=== PATIENT | female | born 1980 | race Caucasian/White ===

== ENCOUNTER 2016-08-05 08:00 | Inpatient (IN) | payer OTHER ==
--- NOTE | ~2016-08-05 | PN ---
Unit #: [id number] #: [id number] Patient: RORO LAINEZ [id number] [facility] [address] [place] [address] [id number] MR#: [id number] NAME: RORO LAINEZ ROOM: P208 Age: 36 Sex: F Admission Date: 08/05/2016 : 1980 Attending Physician: Jorge Alberto Mai M.D. Admitting Physician: Jorge Alberto Mai M.D. Primary Care Physician: Primary Care Physician Lizbeth SEXTON NOTES DATE 08/06/2016 DISCUSSION The patient is complaining of severe symptoms of opiate withdrawal. I will add p.r.n. Vistaril and trazodone today. Dictated by... Jorge Alberto Mai M.D. CB/kristen TD: 08/06/2016 15:03 JOB #: [id number] KEE SEXTON NOTES Page 1 of 1 X Jorge Alberto Mai MD X PROGRESS NOTE
--- NOTE | ~2016-08-05 | HP ---
Unit #: [id number] #: [id number] Patient: RORO LAINEZ [id number] [facility] [address] [place] [address] [id number] MR#: [id number] NAME: RORO LAINEZ ROOM: P208 Age: 36 Sex: F Admission Date: 08/05/2016 : 1980 Attending Physician: Jorge Alberto Mai M.D. Admitting Physician: Jorge Alberto Mai M.D. Primary Care Physician: Primary Care Physician No HISTORY AND PHYSICAL HISTORY OF PRESENT ILLNESS Roro is a 36 year old, admitted to [address] [place] [address], because of her continued drug use. She shoots heroin. PAST MEDICAL HISTORY Long history of opioid abuse to include IV heroin. PAST SURGICAL HISTORY Nothing reported. ALLERGIES No known drug allergies. SOCIAL HISTORY He smokes one pack per day, denies alcohol, admits to a long history of illicit substance abuse, most recently IV heroin. FAMILY HISTORY Medically noncontributory. REVIEW OF SYSTEMS CONSTITUTIONAL: No fever or chills. HEENT: Denies any sore throat, ear pain or runny nose. CARDIOVASCULAR: Denies chest pain, irregular heart rhythm or palpitations. CHEST: Denies shortness of breath or cough. No hemoptysis. GASTROINTESTINAL: Denies nausea, vomiting, diarrhea or chronic constipation. ENDOCRINE: Denies history of increased thirst or urination. No recent significant weight loss or gain. GENITOURINARY: Denies dysuria, frequency, or hematuria. SKIN: Denies any rashes. HEMATOLOGIC: Denies history of increased bleeding or bruising. MUSCULOSKELETAL: Denies any hot, swollen joints. No generalized muscle pain. NEUROLOGIC: Denies problems with vision or speech. No frequent, severe headaches. No numbness, tingling or weakness in any extremities. Denies loss of bladder or bowel control. CURRENT MEDICATIONS Detox protocol. PHYSICAL EXAMINATION GENERAL: Alert, well-nourished, no apparent distress. Unit #: [id number] #: [id number] Patient: RORO LAINEZ VITAL SIGNS: Blood pressure 116/60, heart rate 92, respirations 16, and temperature 98.6. WEIGHT: 175 pounds. HEIGHT: 5 feet 7 inches. SKIN: Warm and dry without rash or lesion. HEENT: Normocephalic. TMs not viewed. Oral and nasal passages clear. Conjunctivae clear. PERRLA. EOMs intact. NECK: Supple without lymphadenopathy or thyromegaly. HEART: Regular rate and rhythm without murmur. LUNGS: Clear. ABDOMEN: Soft, nontender. : Not done. EXTREMITIES: No evidence of cyanosis, clubbing or edema. Moves all without focal deficit. NEUROLOGICAL: Grossly within normal limits. Cranial Nerves: II: Visual greenwood are intact. III, IV AND : Extraocular movements are intact. Pupils are equal, round and reactive to light. V: Facial sensation is grossly normal. VII: Facial movements and expression are normal. VIII: Auditory acuity grossly intact. IX, X: Uvula is midline. Phonation is normal. XI: Patient shrugs shoulders and turns head normally. XII: Tongue protrudes in the midline. Sensory and Motor Function: Sensory and motor sensation is grossly normal. Motor: moves all extremities well. Coordination: Gait is normal. Deep Tendon Reflexes: Intact. IMPRESSION Psychiatric admission. RECOMMENDATIONS Psychiatric, per psychiatrist. MEDICAL I see no contraindications to participating in facility's activities. MEDICAL PROGNOSIS Good. MEDICAL CONDITION Stable. Dictated by... Roro James P.A.-C. for Ida Ortega/mini TD: 08/06/2016 07:03 JOB #: [id number] Unit #: [id number] #: [id number] Patient: RORO LAINEZ HISTORY AND PHYSICAL Page 1 of 1 X Roro James J PA X HISTORY AND PHYSICAL
--- NOTE | ~2016-08-05 | PA ---
Unit #: [id number] #: [id number] Patient: RORO LAINEZ [id number] [facility] [address] [place] [address] [id number] MR#: [id number] NAME: RORO LAINEZ ROOM: P208 Age: 36 Sex: F Admission Date: 08/05/2016 : 1980 Date of Assessment: 08/05/2016 Attending Physician: Jorge Alberto Mai M.D. Admitting Physician: Jorge Alberto Mai M.D. Primary Care Physician: Lizbeth Primary Care Physician PSYCHIATRIC ASSESSMENT IDENTIFYING INFORMATION Patient is a 36-year-old, , white female who is admitted to the [address] [place] [address] with a recent relapse of heroin use. CHIEF COMPLAINT I relapsed. INFORMANT Patient. Patient's reliability is good. HISTORY OF PRESENT ILLNESS The patient is a 36-year-old, , white female with a multiyear history of heroin abuse. The patient reported that she had maintained sobriety until about four months ago when she relapsed. The patient reports she is "tired of living like this" and had voiced some suicidal ideation at the time of admission related to hopelessness. The patient denies uses of psychoactive substances apart from intravenous heroin. She is presently unemployed and living with friends. She states that she obtains heroin by "getting money from people." PAST PSYCHIATRIC HISTORY The patient reports she was treated at [facility] in 2014 and maintained sobriety for several months. PAST MEDICAL HISTORY Noncontributory. MEDICATIONS None. ALLERGIES None. FAMILY HISTORY Noncontributory. SOCIAL HISTORY The patient has an associates degree in accounting, but is not presently employed. She reports substance use, as noted previously, and is a smoker. She is noted to have two children, neither of whom she has custody. MENTAL STATUS EXAMINATION Unit #: [id number] #: [id number] Patient: RORO LAINEZ At this time reveals the patient to be a well developed, well nourished, white female appearing her stated age. She is in moderate physical distress related to opioid withdrawal. During interview, she is awake and oriented in all spheres. Her mood is dysphoric. His affect blunted. Speech is generally relevant and coherent. There are no gross deficits in memory or cognition noted. Intelligence is judged to be in the average range based on fund of knowledge. Patient is cooperative throughout the interview. She continues to endorse positive suicidal ideation. She denies homicidal ideation. She denies any psychotic symptoms. Her judgement and insight appear to be reasonably intact. ASSETS AND LIABILITIES ASSETS: To be assessed. LIABILITIES: Lack of resources. DIAGNOSTIC IMPRESSION Opioid use disorder. TREATMENT PLAN The patient remains hospitalized for safety and stabilization. A routine detoxication protocol for opioids has been initiated and suicide precautions are in place. The patient will participate in appropriate kraft and milieu activities. ESTIMATED STAY IN THE HOSPITAL Five to seven days. Dictated by... Jorge Alberto Mai M.D. Sandeep TD: 08/05/2016 13:35 JOB #: [id number] PSYCHIATRIC ASSESSMENT Page 1 of 1 X Jorge Alberto Mai MD X PSYCHIATRIC ASSESSMENT
--- NOTE | ~2016-08-05 | DS ---
Unit #: [id number] #: [id number] Patient: RORO LAINEZ [id number] [facility] [address] [place] [address] [id number] MR#: [id number] NAME: RORO LAINEZ ROOM: P208 Age: 36 Sex: F Admission Date: 08/05/2016 : 1980 Discharge Date: 08/08/2016 Attending Physician: Jorge Alberto Mai M.D. Primary Care Physician: Primary Care Physician No DISCHARGE SUMMARY REASON FOR ADMISSION The patient is a 36-year-old , white female, admitted to the [address] [place] [address] unit for opioid detox. HOSPITAL COURSE The patient was admitted to the [address] [place] [address] unit, placed on routine detoxification protocol for opioids. She was initially in significant physical distress, but this had cleared by 08/08. On that date, the patient requested discharge and it was so ordered. FINAL DIAGNOSIS Opioid use disorder. DISPOSITION ON DISCHARGE The patient is discharged on no psychotropic or other medications. FOLLOWUP Followup will take place through the auspices of community mental health resources. PROGNOSIS Her prognosis is considered fair. Dictated by... Jorge Alberto Mai M.D. AMAN/karen TD: 08/08/2016 13:34 JOB #: [id number] DISCHARGE SUMMARY Page 1 of 1 X Jorge Alberto Mai MD X DISCHARGE SUMMARY
--- NOTE | ~2016-08-05 | DS ---
Unit #: [id number] #: [id number] Patient: RORO LAINEZ [id number] [place] [address] [id number] MR#: [id number] NAME: RORO LAINEZ ROOM: P208 Age: 36 Sex: F Admission Date: 08/05/2016 : 1980 Discharge Date: 08/08/2016 Attending Physician: Jorge Alberto Mai M.D. Primary Care Physician: Primary Care Physician No DISCHARGE SUMMARY HOSPITAL COURSE The patient gently regarding her failure to attend an on-the-unit activity. She continues to complain of symptoms of withdrawal, and reports that she has made a little if any of her planning post discharge treatment options. I have gently confronted her regarding her need to begin work, and I told her to expect Tuesday discharge. Dictated by... Jorge Alberto Mai M.D. CB/karen TD: 08/07/2016 12:44 JOB #: [id number] DISCHARGE SUMMARY Page 1 of 1 X Jorge Alberto Mai MD X DISCHARGE SUMMARY
[~2016-08-05 08:00] MED LIST: CLEOCIN150 MG PO; PERCOCET5/325 PO; PREDNISONE10 MG PO; VICODIN 5/1 TAB 5/50 PO; ZOVIRAX800 MG PO
[2016-08-06 09:58] LABS: URINE APPEARANCE CLOUDY; URINE BILIRUBIN NEG (NEG); URINE BLOOD NEG (NEG); URINE COLOR YELLOW; URINE GLUCOSE NEG (NEG); URINE KETONE NEG (NEG); URINE LEUKOCYTE ESTERASE 1+ (NEG); URINE NITRATE NEG (NEG); URINE PH 6.5 (5-8); URINE PROTEIN NEG (NEG); URINE SPECIFIC GRAVITY 1.011 (1.003-1.035)
[2016-08-06 10:02] LABS: EOSINOPHIL# 0.2 X10e3 (0-0.7); EOSINOPHIL% 5.1 % (0.0-7.0); HEMATOCRIT 30.7 % (35.0-45.0); HEMOGLOBIN 9.3 gm/dL (12.0-16.0); LYMPHOCYTE# 1.2 X10e3 (1.0-3.5); LYMPHOCYTE% 37.9 % (17.0-45.0); MEAN CELL VOLUME 64.3 FL (83-96); MEAN CORPUSCULAR HEMOGLOBIN 19.5 PG (28-34); MEAN CORPUSCULAR HGB CONC 30.4 g/dL (30-36); MEAN PLATELET VOLUME 9.3 FL (6.5-11.5); MONOCYTE# 0.5 X10e3 (0-1.0); NEUTROPHIL# 1.3 X10e3 (1.5-7.1); PLATELET COUNT 270 X10e3 (140-420); RED BLOOD COUNT 4.77 X10e (3.90-5.30); RED CELL DISTRIBUTION WIDTH 18.4 % (11.0-15.5); WHITE BLOOD COUNT 3.1 X10e3 (4.0-10.5)
[2016-08-06 10:05] LABS: URBCS1 AUWI 0-2 /[HPF] (0-2); URINE BACTERIA AUWI 4+ (NEGATIVE); URINE SQUAMOUS EPITHELIAL CELL FEW /[HPF]
[2016-08-06 10:29] LABS: ALBUMIN SERUM 3.5 g/dL (3.5-5.0); BILIRUBIN,TOTAL 0.4 mg/dL (0.2-2.0); CALCIUM SERUM 9.1 mg/dL (8.4-10.2); CREATININE SERUM 0.8 mg/dL (0.6-1.4); GLOM FILT RATE Estimated 94.3 mL/min (>60); POTASSIUM 4.2 mmol/L (3.5-5.1); PROTEIN TOTAL SERUM 6.8 g/dL (6.0-8.3)
[2016-08-06 10:47] LABS: DIFF IND YES
[2016-08-06 10:54] LABS: ANISOCYTOSIS SL; MICROCYTOSIS MOD; OVALOCYTES PRESENT; PLATELET ESTIMATE NORMAL (NORMAL)
[2016-08-06 10:55] LABS: HYPOCHROMIA SL
[2016-08-06 11:36] LABS: AMPHETAMINE NEG (NEG); BARBITURATES NEG (NEG); BENZODIAZEPINES NEG (NEG); COCAINE POS (NEG); MARIJUANA NEG (NEG); OPIATES POS (NEG); TRICYCLIC ANTIDEPRESSANTS NEG (NEG); U METHADONE NEG (NEG)
[2016-08-11 00:42] LABS: HA AB IGM (HEPPAN) Nonreactive (()); HB CORE AB IGM (HEPPAN) Nonreactive (Nonreactive); HB S AG (HEPPAN) Nonreactive (Nonreactive); HEP C AB (HEPPAN) Nonreactive (Nonreactive); HEP C AB SIGNAL TO CUTOFF 0.04 ratio (<1.00)
== END 2016-08-08 14:34 | disposition home or self-care (01) | DRG 897 ==
LOC: POF 10:39 → P2S 10:39
PROVIDERS: Specialist
PROC: HZ2ZZZZ Detoxification Services for Substance Abuse Treatment (ICD-10-PCS; principal; 2016-08-05)
DX: F11.20 Opioid dependence, uncomplicated (principal); R45.851 Suicidal ideations; F17.210 Nicotine dependence, cigarettes, uncomplicated
CPT/HCPCS: 80053; 80074; 80307; 81003; 84703; 85025; 86592; 87806